=== PATIENT | female | born 1965 | race Caucasian/White ===

== ENCOUNTER 2022-08-25 09:58 | Outpatient (REF) | payer BC, SELFPAY ==
[2022-08-25 14:46] LABS: HCT 43.2 % (36.0-46.0); HGB 13.7 g/dL (11.2-15.7); MCH 30.1 pg (27.0-33.0); MCHC 31.7 % (32.0-36.0); MCV 95 fL (80-95); MPV 10.7 fL (8.0-11.0); Platelet Count 263 10^3/uL (130-400); RBC 4.55 10^6/uL (3.93-5.22); RDW 13.2 % (11.7-14.6); RDW-SD 45.7 fL
[2022-08-25 15:05] LABS: ALT 42 U/L (14-59); AST 32 U/L (15-37); Albumin 3.7 g/dL (3.4-5.0); Alkaline Phosphatase 119 U/L (46-116); Anion Gap 9.8 mmol/L (3-11); BUN 21 mg/dL (7-18); Bilirubin, Total 1.1 mg/dL (0.2-1.0); CO2 26.2 mmol/L (21.0-32.0); CREATININE 0.8 mg/dL (0.55-1.02); Calcium 9.1 mg/dL (8.5-10.1); Calculated LDL 158 mg/dL (<100); Chloride 106 mmol/L (98-107); Cholesterol 242 mg/dL (<200); Estimated GFR 85.35 (mL/min/1.73m2); Glucose 90 mg/dL (74-106); HDL Cholesterol 51 mg/dL (40-60); Sodium 142 mmol/L (136-145); TSH 1.89 uIU/mL (0.36-3.74); Total Protein 7.4 g/dL (6.4-8.2); Triglyceride 169 mg/dL (<150)
[2022-08-26 10:28] LABS: Hepatitis C Ab w Rflx HCV PCR Negative (Negative)
== END 2022-08-25 09:59 | disposition home or self-care (01) ==
LOC: NCHCN 09:58
PROVIDERS: PCP Internal Medicine; Visit Provider Registered Nurse
DX: E66.9 Obesity, unspecified (principal); Z78.9 Other specified health status; Z11.59 Encounter for screening for other viral diseases
CPT/HCPCS: 80053; 80061; 85027; 86803; 84443

== ENCOUNTER 2022-08-26 00:48 | Outpatient (CLI) | payer BC, SELFPAY ==
--- NOTE | 2022-08-26 | DI.RAD_ITS ---
Exam(s) XR FOOT RT COMPLETE EXAM: XR FOOT RT COMPLETE CLINICAL HISTORY: RT FOOT PAIN, M79.671, HEEL PAIN, EVAL FOR STRESS FX/BONY ABNL. TECHNIQUE: 2D digital imaging was performed of the right foot. Three images were obtained. AP, obl ique and lateral views were obtained. COMPARISON: None. FINDINGS: BONES: No acute fracture is present. No bony destructive lesion is seen. JOINTS: No dislocation present. SOFT TISSUE: Normal. IMPRESSION: Unremarkable radiographs of the right foot. DATA REPOSITORY: RADIATION DOSE DELIVERED:
== END 2022-08-26 01:08 ==
PROVIDERS: PCP Internal Medicine; Visit Provider Registered Nurse
DX: M79.671 Pain in right foot (principal)
CPT/HCPCS: 73630

== ENCOUNTER 2023-04-26 13:07 | Outpatient (CLI) | payer BC, SELFPAY ==
[2023-04-26 13:24] LABS: Abs Immature Grans 0.01 10^3/uL (0.0-0.06); Absolute Basophil Count 0.03 10^3/uL (0.0-0.2); Absolute Eosinophil Count 0.12 10^3/uL (0.0-0.7); Absolute Monocyte Count 0.39 10^3/uL (0.1-0.8); Absolute Neutrophil Count 4.46 10^3/uL (1.2-6.7); Basophils % 0.4; Eosinophils % 1.7; HCT 40.7 % (36.0-46.0); HGB 13.4 g/dL (11.2-15.7); Immature Grans % 0.1; Lymphocytes % 27.5; MCH 30.3 pg (27.0-33.0); MCHC 32.9 % (32.0-36.0); MCV 92 fL (80-95); MPV 9.4 fL (8.0-11.0); Monocytes % 5.6; Neutrophils % 64.7; Platelet Count 262 10^3/uL (130-400); RBC 4.42 10^6/uL (3.93-5.22); RDW 13.2 % (11.7-14.6); WBC 6.91 10^3/uL (4.4-10.8)
[2023-04-26 13:56] LABS: Anion Gap 10.2 mmol/L (3-11); BUN 20 mg/dL (7-18); C-Reactive Protein 0.98 mg/dL (0.0-0.3); CO2 24.8 mmol/L (21.0-32.0); CREATININE 0.9 mg/dL (0.55-1.02); Calcium 8.7 mg/dL (8.5-10.1); Chloride 106 mmol/L (98-107); Estimated GFR 73.64 (mL/min/1.73m2); Glucose 113 mg/dL (74-106); Sodium 141 mmol/L (136-145)
== END 2023-04-26 13:08 | disposition home or self-care (01) ==
LOC: LBO 13:08
PROVIDERS: PCP Registered Nurse; Visit Provider Family Medicine
DX: M72.2 Plantar fascial fibromatosis (principal); Z01.818 Encounter for other preprocedural examination; Z01.812 Encounter for preprocedural laboratory examination; R79.82 Elevated C-reactive protein (CRP); R79.89 Other specified abnormal findings of blood chemistry
CPT/HCPCS: 36415; 80048; 85025; 86140

== ENCOUNTER 2024-06-05 13:55 | Day surgery (SDC) | payer BC, SELFPAY ==
[2024-06-04 10:58] VITALS: BP 135/81; PULSE 66; RESP 18; TEMP 36.2; O2SAT 99
--- NOTE | 2024-06-05 09:55 | PDOC.DSDIS_ITS ---
Date of service: 06/05/24 Time of Service: 09:55 Discharge Plan Disposition Patient Disposition: Home Condition: Good Discharge Details Reason For Visit: L ECTR & Cyst excision Attending Provider: Antelmo Simons Primary Care Provider: Karina Miller Home Meds and New Rx's Prescriptions: New acetaminophen 500 mg tablet 1,000 mg PO TID Qty: 90 0RF hydrocodone-acetaminophen 5-325 mg tablet 1 tab PO Q6H PRN (Reason: pain) Qty: 6 0RF ibuprofen 600 mg tablet 600 mg PO TID PRN (Reason: pain) Qty: 90 0RF Continued cholestyramine (with sugar) 4 gram powder in packet See Rx Instructions PO .COMPLEX Rx Instructions: one packet daily Discharge Instructions Stand Alone Forms: Ronak Starr Tunnel Release Referrals: Antelmo Simons MD [ [facility] STAFF PHYSICIAN] - Activity:: Activity as Tolerated Remove Dressings/Wound Care:: 48 hours Shower/Bathe:: 48 hours Diet:: As Tolerated Discharge Orders Discharge Orders: Discharge Order (Routine); Ordered 06/05/24 Ordered By: Jude Thompson DS: Diagnosis Discharge Diagnosis (1) Left carpal tunnel syndrome: Status: Acute (2) Ganglion cyst of tendon sheath of left hand: Status: Acute
--- NOTE | 2024-06-05 14:21 | W.ANESPRE ---
General Info Date of Service Date Performed: 06/05/24 Height: 5 ft 5 in Weight: 97.607 kg Body Mass Index (BMI): 35.8 Surgical Procedure: Operation Date: 06/05/24 15:10 Proposed Procedure Side Surgeon p Wrist ECTR Left Antelmo Simons MD s Excision Cyst Thumb Left Antelmo Simons MD Meds Allergies and Home Medications Allergies Allergy/AdvReac Type Severity Reaction Status Date / Time mupirocin (From Bactroban) Allergy Unknown Other (See Verified 06/05/24 14:17 Comment) sulfamethoxazole (From Allergy Unknown Other (See Verified 06/05/24 14:17 Bactrim) Comment) trimethoprim (From Bactrim) Allergy Unknown Other (See Verified 06/05/24 14:17 Comment) codeine AdvReac Intermediate Headache Verified 06/05/24 14:17 Home Medication ?Medication ?Instructions ?Recorded cholestyramine (with sugar) 4 gram See Rx Instructions PO .COMPLEX 11/03/22 powder for susp in a packet acetaminophen 500 mg tablet 1,000 mg (2 x 500 mg) PO TID #90 06/05/24 tabs hydrocodone 5 mg-acetaminophen 325 1 tab PO Q6H PRN pain #6 tabs 06/05/24 mg tablet ibuprofen 600 mg tablet 600 mg PO TID PRN pain #90 tabs 06/05/24 Current Visit Medications: Current Medications Generic Name Dose Route Start Last Admin Trade Name Freq PRN Reason Stop Dose Admin Acetaminophen 650 mg 06/05/24 09:54 Acetaminophen 325 Mg Tab PO 07/05/24 09:53 Q4H PRN PRN Ringer's Solution 1,000 mls @ 80 mls/hr 06/05/24 06:00 IV 06/05/24 23:59 INFUSION CELINE Cefazolin Sodium/Dextrose 2 gm in 50 mls @ 100 mls/hr 06/05/24 06:00 Ancef Duplex IVPB 06/05/24 23:59 PREOP CELINE IV Miscellaneous Supplies 1 each 06/05/24 06:00 Iv Access IV 06/05/24 23:59 DIRECTED CELINE Sodium Chloride 0 ml 06/05/24 06:00 Normal Saline Flush 10 Ml Syr IV 06/05/24 23:59 PRN PRN Sodium Chloride 0 ml 06/05/24 06:00 Normal Saline 10 Ml Vial IJ 06/05/24 23:59 DIRECTED PRN Sterile Water 0 ml 06/05/24 06:00 Water,Injection,Sterile 10 Ml Vial IJ 06/05/24 23:59 DIRECTED PRN PFSH Active Problems Active Problems: Problem Status Onset Code Ganglion cyst of tendon sheath of left hand Acute M67.442 Left carpal tunnel syndrome Acute G56.02 Medullary sponge kidney Acute Q61.5 BMI 33.0-33.9,adult Acute Z68.33 Pain of right heel Acute M79.671 Medical History Medical History Pain in right foot Dysphagia 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 Kidney stones Seasonal allergic rhinitis Carpal tunnel syndrome Migraine Obesity Disorder of cholesterol metabolism Plantar fasciitis Surgical History Surgical History Hx of cystoscopy Hx of esophagogastroduodenoscopy Hx of colonoscopy History of cholecystectomy H/O foot surgery S/P cholecystectomy Tobacco Smoking/Tobacco Use Status: Never Alcohol Alcohol Intake: never Substance Use Substance use: Never Substance use type: does not use Vital Signs and Lab Results Vital Signs Most Recent Vital Signs in EMR: Temp Pulse Resp BP Pulse Ox 36.2 C L 66 18 135/81 99 06/04/24 10:58 06/04/24 10:58 06/04/24 10:58 06/04/24 10:58 06/04/24 10:58 Lab Results Blood Type / Crossmatch: No Data to Display Complete Blood Count: No Data to Display Complete Metabolic Panel: No Data to Display Liver Function Panel: No Data to Display Coagulation Panel: No Data to Display Cardiac Panel: No Data to Display Arterial Blood Gas: No Data to Display Venous Blood Gas: No Data to Display Pancreas Panel: No Data to Display Thyroid Panel: No Data to Display Infectious Disease: No Data to Display Blood Cultures: No Data to Display Toxicology Panel: No Data to Display Anesthesia Assessment and Plan Anesthesia History Personal History: No History of Anesthesia Complications Family History: No Family History of Anesthesia Complications Exercise Tolerance Exercise Tolerance: Metabolic Equivalents>4 Cardiac & Pulmonary Exam Cardiac Exam: Normal S1/S2 Heart Sounds Pulmonary Exam: Clear Bilateral Breath Sounds Implantable Cardiac Device Does patient have a Pacemaker or an ICD?: No Airway Exam Known Difficult Airway: No Mallampati Class: 1 Mouth Opening: Normal (> 3cm) Thyromental Distance: Greater than 3 cm Neck Range of Motion: Full ROM Neck Circumference: Normal Teeth Condition: Normal Dentition ASA Classification ASA Score: ASA 2 Emergency Case?: No NPO Status NPO Status: NPO Clears >2 hours, Solids >8 hours Anesthesia Plan Resuscitation Status: Full Code Anesthesia Technique: General Anesthesia Airway Planned: Natural Airway Monitors Used: Standard Monitors Preoperative Comments:: 59 yo female for ECTR. Sig PMHx: dysphagia, never smoker. denies major Denies GERD appropriately NPO.
[2024-06-05] MEDS: Lactated Ringers 1,000 ML 80 ML IV (14:35)
[2024-06-05 14:39] VITALS: BMI 35.8
[2024-06-05 14:49] VITALS: BMI 35.8
--- NOTE | 2024-06-05 15:03 | HPE_ITS ---
Assessment and Plan Assessment and plan (1) Ganglion cyst of tendon sheath of left hand: Status: Acute (2) Left carpal tunnel syndrome: Status: Acute Assessment and plan: Rose is a 59-year-old female who has carpal tunnel syndrome of the left hand as well as a cyst about the left thumb. Please see the previous office note for complete detailed history. However, she is here today for carpal tunnel synd rhonda release and cyst excision. I reviewed the technical details of the surgery. I reviewed the risk to include bleeding, infection, pain, stiffness, recurrence, incomplete release, need for repeat procedures. Despite these risk, she elects to proceed. History of Present Illness History of Present Illness Chief Complaint: Left carpal tunnel syndrome and left thumb cyst Narrative: Rose is a 59-year-old female who I saw previously for hand pain and numbness. She has a mixed picture of the symptoms but does have some classic signs of carpal tunnel syndrome. She also has a ganglion cyst about the left thumb. Given these ongoing symptoms she would like to have them fixed. Therefore, she is here today for carpal tunnel release and cyst excision. She denies any new health concerns. No chest pain or shortness of breath. 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 Kidney stones Seasonal allergic rhinitis Carpal tunnel syndrome Migraine Obesity Disorder of cholesterol metabolism Plantar fasciitis Surgical History Hx of cystoscopy Hx of esophagogastroduodenoscopy Hx of colonoscopy History of cholecystectomy H/O foot surgery S/P cholecystectomy Family History Mother , 73 Heart disease Father , 77 Cancer METASTIC OROPHARYNGEAL CANCER Pneumonia Social History Smoking/Tobacco Use Status: Never Smoking risk assessment performed?: Yes Alcohol Intake: never Drug use: Never Substance use type: does not use Housing: house Do you feel safe at home: Yes Do you feel safe in your relationship?: Yes Meds Allergies and Home Medications Allergies Allergy/AdvReac Type Severity Reaction Status Date / Time mupirocin (From Bactroban) Allergy Unknown Other (See Verified 06/05/24 14:17 Comment) sulfamethoxazole (From Allergy Unknown Other (See Verified 06/05/24 14:17 Bactrim) Comment) trimethoprim (From Bactrim) Allergy Unknown Other (See Verified 06/05/24 14:17 Comment) codeine AdvReac Intermediate Headache Verified 06/05/24 14:17 Home Medications ?Medication ?Instructions ?Recorded ?Confirmed ?Type cholestyramine (with sugar) 4 gram See Rx Instructions PO .COMPLEX 11/03/22 06/05/24 History powder for susp in a packet acetaminophen 500 mg tablet 1,000 mg (2 x 500 mg) PO TID #90 06/05/24 Rx tabs hydrocodone 5 mg-acetaminophen 325 1 tab PO Q6H PRN pain #6 tabs 06/05/24 Rx mg tablet ibuprofen 600 mg tablet 600 mg PO TID PRN pain #90 tabs 06/05/24 Rx Exam Resp Effort & Inspection: normal respiratory effort Auscultation: clear to auscultation bilaterally Cardio Rate: regular rate Rhythm: regular rhythm Results Last Vital Signs Temp 36.2 C L 06/04/24 10:58 Pulse 66 06/04/24 10:58 Resp 18 06/04/24 10:58 BP 135/81 06/04/24 10:58 Pulse Ox 99 06/04/24 10:58
[2024-06-05] MEDS: ceFAZolin 2 GM/50 ML BAG IVPB (15:48)
[2024-06-05] MEDS: Lidocaine 1% Pres-Free W/EPI 1/200,000 10 ML VIAL (15:57)
[2024-06-05 16:15] VITALS: BP 106/55; PULSE 70; RESP 16; TEMP 35.8; O2SAT 98
--- NOTE | 2024-06-05 16:43 | W.ANESPOSTOP ---
Postoperative Evaluation Date, Time and Location Date Performed: 06/05/24 Time Performed: 16:43 Patient Location: Day Surgery Unit Vital Signs Most Recent Imported Vital Signs: Most Recent Vital Signs Temp Pulse Resp BP Pulse Ox 35.8 C L 70 16 106/55 L 98 06/05/24 16:15 06/05/24 16:15 06/05/24 16:15 06/05/24 16:15 06/05/24 16:15 Pain Score Most Recent Pain Score: Most Recent Pain Score Pain Level 0 06/05/24 16:15 Assessment Mental Status: Awake (Alert & Oriented to Patient Baseline) Airway and Respiratory Function: Patent airway with normal (patient baseline) respiratory exam Cardiovascular Function: Hemodynamically Stable Hydration Status: Adequately Hydrated Nausea & Vomiting: No Nausea or Vomiting Pain: Pain is tolerable per patient Peripheral Nerve Block: Patient did not receive a nerve block
[2024-06-05 16:52] VITALS: BP 123/76; PULSE 61; RESP 18; TEMP 36.1; O2SAT 98
--- NOTE | 2024-06-05 17:34 | ROE_ITS ---
Date of service: 06/05/24 Time of Service: 15:40 Operative Note Operative Note DATE OF PROCEDURE: 06/05/24 PRE-OP DIAGNOSIS: Left Carpal Tunnel Syndrome Left Thumb Mass POST-OP DIAGNOSIS: same PROCEDURE: Left Endoscopic Carpal Tunnel Release Excision of Left Thumb Mass SURGEON: Antelmo Simons ANESTHESIA TYPE: General:No Airway Refer to Anesthesia Record ESTIMATED BLOOD LOSS: 0 PATHOLOGY: none sent TOURNIQUET TIME: 10 COMPLICATIONS: None Patient was transported to: same day Patient's condition: stable Indications: I have seen Rose in clinic for symptoms of carpal tunnel syndrome. The numbness, tingling, and pain limited function. Clinical exam findings confirmed the diagnosis of carpal tunnel syndrome although she did have some confounding symptoms. Nonoperative measures such as bracing, time, activity modifications had been tried but disability and pain persisted. I discussed carpal tunnel release with the patient. I reviewed the risks of the procedure to include, but not limited to, bleeding, infection, pain, stiffness, incomplete release, damage to nerves or vessels, persistent numbness, recurrence. Despite these risks, the patient elected to proceed. She also has had prominence to the ulnar aspect of the left thumb with a circumferential mass type lesion which was painful. This has been going on for some time and due to its discomfort she has for it to be removed as well. I discussed the removal of the mass with her. Reviewed risk to include recurrence, incomplete resection, need for repeat procedures, damage nerves and vessels, damage to muscle and tendons. Despite these risk, she elected to proceed. Findings: There was tightened carpal tunnel. This was dilated and released successfully with the endoscopic with increased space within the tunnel. The antebrachial fascia was released proximally freeing the median nerve at the wrist. The mass about the ulnar aspect of the left thumb within the soft tissues appear to be a small epidermoid cyst with some surrounding hypertrophic tissue. Procedure Description: Rose was greeted in the preoperative holding area where the correct side was identified and marked. The consent was reviewed with the patient and signed. T he history and physical was updated. All questions were answered. She was taken back to the operating room. The patient was placed into the supine position on the operating room table with the left arm on an arm board. A nonsterile tourniquet was placed high onto the arm. All bony prominences were well padded. Prophylactic antibiotics in the form of Cefazolin were administered. The left arm was then prepped with Chloraprep and draped in a standard fashion with stockinette and extremity drape. A timeout to confirm correct identity, side and site, procedure, allergies, anesthesia, and medical concerns was performed. The surgical site was marked in the volar wrist creases in line with the radial border of the fourth ray. This area was anesthetized with approximately 6cc of 1% Lidocaine. The limb was then exsanguinated with an Esmarch. The skin was incised with a 15 blade, approximately 1cm. The skin only was cut and the deeper tissue was dissected bluntly with a tenotomy scissor, avoiding passing nerve and venous structures. The fascia was penetrated and opened bluntly. A two-prong skin hook was placed under this proximal fascial edge. A series of hamate finders were used to identify and dilate the carpal tunnel. Synovial elevator was used to free synovial attachments to the underside of the transverse carpal ligament. My thumb was kept in the palm to glenn the distal extent of the carpal tunnel and correctly position the hand. The [employer] endoscope was inserted without difficulty and without resistance. Excellent visualization showed horizontally running fibers of the transverse carpal ligament (TCL). The distal extent of the TCL was visualized and the end of the scope palpated with the thumb. The blade was elevated and withdrawn from distal to proximal. The TCL was split into two flaps. The endoscope was reinserted to confirm complete release and any remnant ligament was incised. The scope was withdrawn and the proximal aspect of the carpal tunnel was grossly inspected and appeared release with the median nerve visible. The antebrachial fascia at the level of the wrist was then freed from the overlying skin and then the underlying median nerve with blunt dissection. This was transected longitudinally for about 3cm proximal to the wrist incision. The wound was then irrigated with easy flow of irrigant distally and proximally. The incision was closed with a single 4-0 Nylon suture. Attention was then turned to the ulnar aspect of the left thumb. A longitudinal incision was made overlying the mass. Prior to the incision, this area was anesthetized with 1% lidocaine. Skin was incised sharply. There appeared to be a small circumscribed lesion consistent with an epidermoid cyst adjacent and adherent to the dermis with some surrounding hypertrophic fat. This was removed. The hypertrophic tissue this area was debrided. There is also prominence to the base of the thumb proximal phalanx which was adjacent to but not directly where the previous mass was. This area was then irrigated. Skin was closed with a single 4-0 nylon suture. The wounds were dressed with Xeroform, Gauze, Kerlix and Jameson. The tourniquet was deflated with the initial dressing and held with some pressure. Blood flow returned easily to all digits with capillary refill less than 2 seconds. The patient tolerated the procedure well and was returned to the Same Day Surgery area in a stable condition suffering no known complication.
== END 2024-06-05 17:00 | disposition home or self-care (01) ==
LOC: SUR 13:55
PROVIDERS: PCP Family Medicine; Visit Provider Student in an Organized Health Care Education/Training Program
PROC: 01N54ZZ Release Median Nerve, Percutaneous Endoscopic Approach (ICD-10-PCS; CPT 29848; principal; 2024-06-05 15:00)
PROC: (CPT 26160; 2024-06-05 15:00)
DX: M67.442 Ganglion, left hand (principal); G56.02 Carpal tunnel syndrome, left upper limb
CPT/HCPCS: 29848; 26160; J0690; J2004; J2704